=== PATIENT | female | born 1960 | race Caucasian/White ===

== ENCOUNTER 2022-09-19 12:35 | Outpatient (CLI) | payer BC | END 2022-09-19 12:36 | disposition home or self-care (01) | LOC: BICMAMMO 12:35 | PROVIDERS: ATTEND Family Medicine | DX: Z12.31 Encounter for screening mammogram for malignant neoplasm of breast (principal) | CPT/HCPCS: 77063; 77067 ==

== ENCOUNTER 2023-11-15 12:07 | Outpatient (CLI) | payer BC | END 2023-11-15 12:08 | disposition home or self-care (01) | LOC: BICMAMMO 12:07 | PROVIDERS: ATTEND Family Medicine | DX: Z12.31 Encounter for screening mammogram for malignant neoplasm of breast (principal); Z91.89 Other specified personal risk factors, not elsewhere classified | CPT/HCPCS: 77063; 77067 ==

== ENCOUNTER 2024-03-11 15:34 | Outpatient (CLI) | payer BC | END 2024-03-11 15:35 | disposition home or self-care (01) | LOC: BICMAMMO 15:34 | PROVIDERS: ATTEND Family Medicine | DX: Z13.820 Encounter for screening for osteoporosis (principal); M85.89 Other specified disorders of bone density and structure, multiple sites; Z78.0 Asymptomatic menopausal state | CPT/HCPCS: 77080 ==

== ENCOUNTER 2025-06-30 14:05 | Outpatient (CLI) | payer BC | END 2025-06-30 14:06 | disposition home or self-care (01) | LOC: BICMAMMO 14:05 | PROVIDERS: ATTEND Family Medicine | DX: Z12.31 Encounter for screening mammogram for malignant neoplasm of breast (principal); Z91.89 Other specified personal risk factors, not elsewhere classified | CPT/HCPCS: 77063; 77067 ==